=== PATIENT | female | born 1965 | race Caucasian/White ===

== ENCOUNTER 2018-04-08 20:11 | Emergency (ER) | payer BC ==
[2018-04-08] MEDS ORDERED: LORazepam 1 MG Tab PO ONE (20:48)
--- NOTE | 2018-04-08 21:44 | EDM.PDOC ---
ED HPI GENERAL MEDICAL PROBLEM - General Chief Complaint: General Stated Complaint: DIZZY/ACHES Time Seen by Provider: 04/08/18 20:27 Source of Information: Reports: Patient History Limitations: Reports: No Limitations - History of Present Illness INITIAL COMMENTS - FREE TEXT/NARRATIVE: Patient is a 52-year-old female who presents to the ED complaining of intermittent dizziness, increased anxiety, and also intermittent achiness to her upper and lower extremities. States this all started approximately one week ago. All symptoms come and go. She states the dizziness is not related to any body position changes nor with turning her head left to right. She does not describe it as a sensation of the room spinning. She does not have any specifics on how or what makes it worse. In addition the achiness to her upper and lower extremities comes and goes as well. Improved with gentle rubbing. There is no swelling, recent trauma, bruising, or any activities or precipitated this. who is present states patient has been looking on the Internet for potential causes. Patient's anxiety level has increased. Patient is worried this related to her heart. He does carry a history of hypertension, elevated blood glucoses without diagnosis of diabetes. Unclear if she has high cholesterol. There is no family history of first-degree relatives with heart disease. Patient does not smoke. She does not drink. She does not use drugs. She does not have any history of heart disease. Generalized Pain Score (Numeric/FACES): 5 - Related Data Allergies Allergy/AdvReac Type Severity Reaction Status Date / Time No Known Allergies Allergy Verified 04/08/18 20:24 Home Meds: Home Meds Losartan Potassium 100 mg PO DAILY 04/08/18 [History] hydroCHLOROthiazide [Hydrochlorothiazide] 25 mg PO DAILY 04/08/18 [History] Past Medical History Cardiovascular History: Reports: Hypertension Gastrointestinal History: Reports: GERD [employer]GER History: Reports: Psychiatric History: Reports: Anxiety - Past Surgical History Female Surgical History: Reports: Section Social & Family History - Tobacco Use Smoking Status *Q: Never Smoker - Recreational Drug Use Recreational Drug Use: No ED ROS GENERAL - Review of Systems Review Of Systems: See Below Constitutional: Denies: Fever, Chills, Malaise, Weakness, Fatigue, Decreased Appetite HEENT: Reports: No Symptoms Respiratory: Denies: Shortness of Breath, Wheezing, Pleuritic Chest Pain, Cough , Sputum, Hemoptysis Cardiovascular: Reports: Blood Pressure Problem. Denies: Chest Pain, Dyspnea on Exertion, Lightheadedness, Palpitations, Syncope GI/Abdominal: Denies: Abdominal Pain, Constipation, Diarrhea, Decreased Appetite , Nausea, Vomiting : Denies: Dysuria, Frequency, Hematuria, Urgency Musculoskeletal: Reports: Muscle Pain (intermittent arm and leg pain improved with rubbing. ) Skin: Reports: No Symptoms Neurological: Reports: Dizziness (intermittent). Denies: Confusion, Headache, Numbness, Paresthesia, Pre-Existing Deficit, Syncope, Tingling, Tremors, Trouble Speaking, Difficulty Walking, Weakness, Gait Disturbance Psychiatric: Reports: Anxiety ED EXAM, GENERAL - Physical Exam Exam: See Below Exam Limited By: No Limitations General Appearance: Alert, WD/WN, Anxious Eye Exam: Bilateral Eye: EOMI, Normal Inspection, Nystagmus (none noted), PERRL , Vision Changes (none noted) Ears: Hearing Grossly Normal Nose: Normal Inspection Throat/Mouth: Normal Inspection, Normal Oropharynx, Normal Voice, No Airway Compromise Head: Atraumatic, Normocephalic Neck: Normal Inspection, Supple Respiratory/Chest: No Respiratory Distress, Lungs Clear, Normal Breath Sounds, No Accessory Muscle Use, Chest Non-Tender Cardiovascular: Normal Peripheral Pulses, Regular Rate, Rhythm, No Murmur Peripheral Pulses: 2+: Radial (L), Radial (R) GI/Abdominal: Normal Bowel Sounds, Soft, Non-Tender, No Organomegaly, No Distention Extremities: Normal Inspection, Normal Range of Motion, Non-Tender, No Pedal Edema Neurological: Alert, Oriented, CN II-XII Intact, Normal Cognition, Normal Gait, No Motor/Sensory Deficits, Other (No facial droop, no slurred speech, no tongue deviation. No weakness discrepancies to the upper or lower extremities. Finger to nose and rapid alternating movements are intact. Gait is normal.) Psychiatric: Normal Affect, Anxious Skin Exam: Warm, Dry, Intact, Normal Color, No Rash Course - Vital Signs Last Recorded V/S: Last Vital Signs Temp 98.1 F 04/08/18 20:24 Pulse 102 H 04/08/18 20:24 Resp 18 04/08/18 20:24 BP 172/95 H 04/08/18 20:24 Pulse Ox 96 04/08/18 20:24 Orthostatic Blood Pressure [ 143/108 Standing] Orthostatic Blood Pressure [ 137/93 Sitting] Orthostatic Blood Pressure [ 126/82 Supine] - Orders/Labs/Meds Orders: Active Orders 24 hr Category Date Time Status EKG Documentation Completion [RC] STAT Care 04/08/18 20:48 Active Orthostatic Vital Signs [RC] ASDIRECTED Care 04/08/18 20:48 Active CXR [Chest 1V Frontal] [CR] Stat Exams 04/08/18 20:48 Taken Labs: Laboratory Tests 04/08/18 04/08/18 Range/Units 21:10 21:10 WBC 8.83 (3.98-10.04) K/mm3 RBC 4.22 (3.98-5.22) M/mm3 Hgb 12.5 (11.2-15.7) gm/L Hct 37.4 (34.1-44.9) % MCV 88.6 (79.4-94.8) fl MCH 29.6 (25.6-32.2) pg MCHC 33.4 (32.2-35.5) g/dl RDW Std Deviation 39.8 (36.4-46.3) fL Plt Count 238 (182-369) K/mm3 MPV 9.6 (9.4-12.3) fl Neutrophils % (Manual) 58 (40-60) % Band Neutrophils % 0 (0-10) % Lymphocytes % (Manual) 38 (20-40) % Atypical Lymphs % 0 % Monocytes % (Manual) 4 (2-10) % Eosinophils % (Manual) 0 L (0.7-5.8) % Basophils % (Manual) 0 L (0.1-1.2) Platelet Estimate Adequate Plt Morphology Comment Normal RBC Morph Comment Normal Sodium 137 (136-145) mEq/L Potassium 3.2 L (3.5-5.1) mEq/L Chloride 99 (98-107) mEq/L Carbon Dioxide 23 (21-32) mEq/L Anion Gap 18.2 H (5-15) BUN 35 H (7-18) mg/dL Creatinine 1.3 H (0.55-1.02) mg/dL Est Cr Clr Drug Dosing 48.11 mL/min Estimated GFR (MDRD) 43 (>60) mL/min BUN/Creatinine Ratio 26.9 H (14-18) Glucose 109 H (74-106) mg/dL Calcium 10.3 H (8.5-10.1) mg/dL Total Bilirubin 0.3 (0.2-1.0) mg/dL AST 21 (15-37) U/L ALT 25 (14-59) U/L Alkaline Phosphatase 90 (46-116) U/L Troponin I < 0.017 (0.00-0.056) ng/mL Total Protein 8.8 H (6.4-8.2) g/dl Albumin 4.0 (3.4-5.0) g/dl Globulin 4.8 gm/dL Albumin/Globulin Ratio 0.8 L (1-2) TSH 3rd Generation 2.484 (0.358-3.74) uIU/mL Meds: Medications Discontinued Medications Generic Name Dose Route Start Last Admin Trade Name Freq PRN Reason Stop Dose Admin Lorazepam 1 mg 04/08/18 20:48 04/08/18 20:58 Ativan PO 04/08/18 20:49 1 mg ONETIME ONE Administration - Re-Assessments/Exams Free Text/Narrative Re-Assessment/Exam: Vital signs with admission 172/95, heart rate 98, SPO2 99% on room air. Patient complains of intermittent dizziness and achiness to her arms and legs. She states both symptoms come and go. Discomfort to the arms and legs improved with gentle massage. Again this is been off-and-on worsened this evening with her increased anxiety. who is present states patient has been searching the internet for causes of these complaints is concerned this is related to her heart. Patient denies any chest pain or shortness of breath. Initial labs and studies will include: CBC, chem 14, troponin, TSH, chest x-ray two-view, and EKG. Orthostatic vital signs will be obtained. EKG indicated a sinus rhythm at a rate of 78 with QTC of 446, and normal AL interval. No acute ST changes noted. Chest x-ray revealed no concerning findings. Reviewed with Dr. Carrillo. Labs reviewed: Na 137, K 3.2, AG 18.2, cr 1.3, Bun 35, Glucose 19, Calcium 10.3 , troponin <0.017, TSH WNL. Patient admits to taking excessive amounts of Tums. 04/08/18 22:35 Reassessment, patient is feeling much better. BP has trended downward. She has no complaints at this time. Suspect cause of intermittent dizziness is related to her increased anxiety and hypertension. I have discussed with the patient return precautions. She will call and make appt with PCP tomorrow for further evaluation. She agrees with plan. 04/08/18 22:47 Departure - Departure Time of Disposition: 22:46 Disposition: Home, Self-Care 01 Condition: Good Clinical Impression: Dehydration, Hypokalemia, Hypercalcemia - Discharge Information Instructions: Dehydration, Adult, [id number], Potassium Content of Foods Referrals: PCP,Not In Area [Primary Care Provider] - Forms: ED Department Discharge, ED Return to Work/School Form Additional Instructions: Please read the education material in relation to hypokalemia. Push the fluids. Call your PCP tomorrow and make an appointment to be evaluated in the next 2-3 days. I believe the dizziness was related to your increase in anxiety level causing your blood pressure to be elevated. Please monitor your blood pressure and keep a log. Do not take your blood pressure if anxious, in pain, or after exerting herself. In addition will have you start taking Zantac 150 milligrams at night. Continue taking the pantoprazole as prescribed. Refrain from caffeinated beverages, chocolates, spicy foods, eating or drinking within 3 hours ago to bed. Please return back to the ED if you develop any new or worsening symptoms. - My Orders Last 24 Hours: My Active Orders 04/08/18 20:48 EKG Documentation Completion [RC] STAT Orthostatic Vital Signs [RC] ASDIRECTED CXR [Chest 1V Frontal] [CR] Stat - Assessment/Plan Last 24 Hours: My Active Orders 04/08/18 20:48 EKG Documentation Completion [RC] STAT Orthostatic Vital Signs [RC] ASDIRECTED CXR [Chest 1V Frontal] [CR] Stat
--- NOTE | 2018-04-09 06:59 | CR ---
Chest: Portable view of the chest was obtained. Comparison: No prior chest x-ray. Heart size and mediastinum are within normal limits. Lungs are clear. Bony structures appear within normal limits for the patient's age. Impression: 1. Nothing acute is seen on portable chest x-ray. Diagnostic code #1
== END 2018-04-08 23:01 | disposition home or self-care (01) ==
LOC: JD.ED 20:11
DX: E86.0 Dehydration (principal); E87.6 Hypokalemia; E83.52 Hypercalcemia; I10 Essential (primary) hypertension; Z79.899 Other long term (current) drug therapy
CPT/HCPCS: 36415; 71045; 80053; 84443; 84484; 85007; 85027; 93005; 99284; A9270; 93010